=== PATIENT | female | born 1975 | race American Indian/Alaskan Native ===

== ENCOUNTER 2020-12-30 11:51 | Emergency (ER) | payer OTHER ==
[2020-12-30 11:57] VITALS: BP 130/75
[2020-12-30] MEDS ORDERED: ACETAMINOPHEN 325 MG TAB PO ONE (14:48)
[2020-12-30] MEDS ORDERED: CYCLOBENZAPRINE 10 MG TAB PO ONE (14:48)
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
== END 2020-12-30 18:35 | disposition home or self-care (01) ==
LOC: ED 11:51
DX: M54.2 Cervicalgia (principal); V89.2XXA Person injured in unspecified motor-vehicle accident, traffic, initial encounter; Y93.89 Activity, other specified; Y92.410 Unspecified street and highway as the place of occurrence of the external cause; Y99.8 Other external cause status
CPT/HCPCS: 72040; 99283